=== PATIENT | male | born 1985 | race Caucasian/White ===

== ENCOUNTER 2017-11-20 11:25 | Emergency (ER) | payer OTHER ==
--- NOTE | 2017-11-20 12:56 | RAD REPORT ---
EXAM DESCRIPTION: US - Scrotum Testicles - 11/20/2017 12:45 pm CLINICAL HISTORY: Testicular pain COMPARISON: None. FINDINGS: Testicular tissue is homogeneous. No intratesticular mass lesions. Doppler evaluation show s a normal blood flow pattern within each testicle. No epididymis enlargement or hyperemia seen. Smal l right-sided hydrocele is present. No varicocele or other extratesticular abnormality. IMPRESSION: Small right-sided hydrocele is present. Exam is otherwise unremarkable.
[2017-11-20 13:49] LABS: Urine Blood NEGATIVE (NEG); Urine Glucose NEGATIVE (NEG); Urine Protein NEGATIVE (NEG); Urine Specific Gravity <1.005 (1.005-1.030); Urine pH 5.5 (5.0-7.0)
--- NOTE | 2017-11-20 14:27 | ER ---
Nurse's Notes [facility] Name: Vinod Horton Age: 32 yrs Sex: Male : 1985 Arrival Date: 11/20/2017 Time: 11:28 Bed 20 Private MD: None, None Diagnosis: Hydrocele, unspecified Presentation: 11/20 11:50 Presenting complaint: Presenting complaint: Patient states: "My right testicle is hb pulled up and feels like it is twisted.". 11:52 Transition of care: patient was not received from another setting of care. Onset of hb symptoms was November 19, 2017. Risk Assessment: Do you want to hurt yourself or someone else? Patient reports no desire to harm self or others. Initial Sepsis Screen: Does the patient meet any 2 criteria? No. Patient's initial sepsis screen is negative. Does the patient have a suspected source of infection? No. Patient's initial sepsis screen is negative. Care prior to arrival: None. 11:52 Method Of Arrival: Ambulatory 11:52 Acuity: SARAH 2 hb Historical: - Allergies: 11:53 No Known Allergies; hb - Home Meds: 11:53 None [Active]; hb - PMHx: 11:53 None; hb - PSHx: 11:53 None; hb - Immunization history:: Adult Immunizations up to date. - Social history:: Smoking status: Patient uses tobacco products, smokes one-half pack cigarettes per day. - Ebola Screening: : No symptoms or risks identified at this time. Screenin:30 Abuse screen: Denies threats or abuse. Denies injuries from another. Nutritional aj1 screening: No deficits noted. Tuberculosis screening: No symptoms or risk factors identified. 15:39 Fall Risk None identified. aj1 Assessment: 12:30 General: Appears in no apparent distress. uncomfortable, Behavior is calm, cooperative, aj1 appropriate for age. Pain: Complains of pain in right testicle Pain does not radiate. Pain currently is 10 out of 10 on a pain scale. Neuro: Level of Consciousness is awake, alert, obeys commands, Oriented to person, place, time, situation, Speech is normal, Facial symmetry appears normal. Cardiovascular: Patient's skin is warm and dry. Respiratory: Airway is patent Respiratory effort is even, unlabored, Respiratory pattern is regular, symmetrical. GI: No signs and/or symptoms were reported involving the gastrointestinal system. : Reports Scrotal pain: sudden onset. EENT: No signs and/or symptoms were reported regarding the EENT system. Derm: No signs and/or symptoms reported regarding the dermatologic system. Skin is pink, warm \\T\\ dry. normal. Musculoskeletal: No signs and/or symptoms reported regarding the musculoskeletal system. Circulation, motion, and sensation intact. 13:30 Reassessment: Patient appears in no apparent distress at this time. No changes from aj1 previously documented assessment. Patient and/or family updated on plan of care and expected duration. Pain level reassessed. Patient is alert, oriented x 3, equal unlabored respirations, skin warm/dry/pink. 14:30 Reassessment: Patient appears in no apparent distress at this time. No changes from aj1 previously documented assessment. Patient and/or family updated on plan of care and expected duration. Pain level reassessed. Patient is alert, oriented x 3, equal unlabored respirations, skin warm/dry/pink. 15:37 Reassessment: Patient appears in no apparent distress at this time. No changes from aj1 previously documented assessment. Patient and/or family updated on plan of care and expected duration. Pain level reassessed. Patient is alert, oriented x 3, equal unlabored respirations, skin warm/dry/pink. Vital Signs: 11:51 BP 135 / 92; Pulse 84; Resp 16; Temp 99.2; Pulse Ox 97% on R/A; Weight 90.72 kg; Height hb 5 ft. 6 in. (167.64 cm); Pain 7/10; 12:30 BP 127 / 89; Pulse 89; Resp 18; Pulse Ox 99% ; aj1 13:26 BP 124 / 70; Pulse 82; Resp 18; Pulse Ox 99% ; aj1 14:30 BP 122 / 63; Pulse 79; Resp 18; Pulse Ox 97% ; aj1 15:38 BP 124 / 70; Pulse 72; Resp 16; Pulse Ox 99% ; aj1 11:51 Body Mass Index 32.28 (90.72 kg, 167.64 cm) hb ED Course: 11:28 Patient arrived in ED. sb2 11:29 None, None is Private Physician. sb2 11:52 Triage completed. hb 11:53 Arm band placed on left wrist. hb 12:12 Ganga Carter MD is Attending Physician. adolph 12:25 Shawanda Nixon, RN is Primary Nurse. aj1 12:30 Patient has correct armband on for positive identification. Bed in low position. Call aj1 light in reach. Side rails up X 1. 12:30 No provider procedures requiring assistance completed. aj1 12:30 Inserted saline lock: 20 gauge in left antecubital area, using aseptic technique. aj1 12:45 Scrotum Testicles In Process Unspecified. EDMS 14:25 Obinna Ordonez MD is Referral Physician. adolph 15:39 IV discontinued, intact, bleeding controlled, No redness/swelling at site. Pressure aj1 dressing applied. Administered Medications: 14:52 Drug: Zithromax 1 grams Route: PO; aj1 14:53 CANCELLED (Physician Discretion): Rocephin (cefTRIAXone) 1 grams IM once aj1 14:54 Drug: Rocephin 1 grams Route: IV; Rate: calculated rate; Site: right antecubital; aj1 Outcome: 14:26 Discharge ordered by . [facility] 15:55 Discharged to home ambulatory. dm5 15:55 Condition: good 15:55 Discharge instructions given to patient, Instructed on discharge instructions, follow up and referral plans. medication usage, Demonstrated understanding of instructions, follow-up care, medications, Prescriptions given X 3. 15:55 Patient left the ED. dm5 Signatures: Dispatcher [employer] EDShawanda Henley, RN MELLISSA aj1 Erika Edwards RN RN dm5 Ganga Carter MD MD cha Baxter, Heather, RN RN Maria Teresa Johnson sb2 Corrections: (The following items were deleted from the chart) 11:52 11:50 Presenting complaint: hb hb 12:32 12:31 In radiology for Scrotum Testicles+US.RAD.BRZ. EDPR EDMS
--- NOTE | 2017-11-20 14:28 | EDPHYS ---
Physician Documentation [facility] Name: Vinod Horton Age: 32 yrs Sex: Male : 1985 Arrival Date: 11/20/2017 Time: 11:28 Bed 20 Private MD: None, None ED Physician Ganga Carter HPI: 11/20 12:38 This 32 yrs old Male presents to ER via Ambulatory with complaints of adolph Testicular Pain. 12:38 The patient presents with scrotal pain, of the right side. Onset: The symptoms/episode adolph began/occurred last night. Modifying factors: The symptoms are alleviated by nothing, the symptoms are aggravated by nothing. Associated signs and symptoms: The patient has no apparent associated signs or symptoms. Severity of symptoms: At their worst the symptoms were mild, moderate, in the emergency department the symptoms are unchanged. The patient has not experienced similar symptoms in the past. Historical: - Allergies: 11:53 No Known Allergies; hb - Home Meds: :53 None [Active]; hb - PMHx: :53 None; hb - PSHx: :53 None; hb - Immunization history:: Adult Immunizations up to date. - Social history:: Smoking status: Patient uses tobacco products, smokes one-half pack cigarettes per day. - Ebola Screening: : No symptoms or risks identified at this time. ROS: 12:38 Constitutional: Negative for fever, chills, and weight loss, Eyes: Negative for injury, adolph pain, redness, and discharge, ENT: Negative for injury, pain, and discharge, Neck: Negative for injury, pain, and swelling, Cardiovascular: Negative for chest pain, palpitations, and edema, Respiratory: Negative for shortness of breath, cough, wheezing, and pleuritic chest pain, Abdomen/GI: Negative for abdominal pain, nausea, vomiting, diarrhea, and constipation, Back: Negative for injury and pain, MS/Extremity: Negative for injury and deformity, Skin: Negative for injury, rash, and discoloration, Neuro: Negative for headache, weakness, numbness, tingling, and seizure, Psych: Negative for depression, anxiety, suicide ideation, homicidal ideation, and hallucinations, Allergy/Immunology: Negative for hives, rash, and allergies, Endocrine: Negative for neck swelling, polydipsia, polyuria, polyphagia, and marked weight changes, Hematologic/Lymphatic: Negative for swollen nodes, abnormal bleeding, and unusual bruising. 12:38 : Positive for testicular pain of the left testicle. Exam: 12:38 Constitutional: This is a well developed, well nourished patient who is awake, alert, adolph and in no acute distress. Head/Face: Normocephalic, atraumatic. Eyes: Pupils equal round and reactive to light, extra-ocular motions intact. Lids and lashes normal. Conjunctiva and sclera are non-icteric and not injected. Cornea within normal limits. Periorbital areas with no swelling, redness, or edema. ENT: Nares patent. No nasal discharge, no septal abnormalities noted. Tympanic membranes are normal and external auditory canals are clear. Oropharynx with no redness, swelling, or masses, exudates, or evidence of obstruction, uvula midline. Mucous membranes moist. Neck: Trachea midline, no thyromegaly or masses palpated, and no cervical lymphadenopathy. Supple, full range of motion without nuchal rigidity, or vertebral point tenderness. No Meningismus. Chest/axilla: Normal chest wall appearance and motion. Nontender with no deformity. No lesions are appreciated. Cardiovascular: Regular rate and rhythm with a normal S1 and S2. No gallops, murmurs, or rubs. Normal PMI, no JVD. No pulse deficits. Respiratory: Lungs have equal breath sounds bilaterally, clear to auscultation and percussion. No rales, rhonchi or wheezes noted. No increased work of breathing, no retractions or nasal flaring. Abdomen/GI: Soft, non-tender, with normal bowel sounds. No distension or tympany. No guarding or rebound. No evidence of tenderness throughout. Back: No spinal tenderness. No costovertebral tenderness. Full range of motion. Skin: Warm, dry with normal turgor. Normal color with no rashes, no lesions, and no evidence of cellulitis. MS/ Extremity: Pulses equal, no cyanosis. Neurovascular intact. Full, normal range of motion. Neuro: Awake and alert, GCS 15, oriented to person, place, time, and situation. Cranial nerves II-XII grossly intact. Motor strength 5/5 in all extremities. Sensory grossly intact. Cerebellar exam normal. Normal gait. Psych: Awake, alert, with orientation to person, place and time. Behavior, mood, and affect are within normal limits. 12:38 Musculoskeletal/extremity: Extremities: all appear grossly normal, with no appreciated pain with palpation, grossly normal except: DVT Exam: No signs of deep vein thrombosis. no pain, no swelling, no tenderness, negative Homans' sign noted on exam, no appreciated bluish discoloration, no erythema, no increased warmth. Vital Signs: 11:51 BP 135 / 92; Pulse 84; Resp 16; Temp 99.2; Pulse Ox 97% on R/A; Weight 90.72 kg; Height hb 5 ft. 6 in. (167.64 cm); Pain 7/10; 12:30 BP 127 / 89; Pulse 89; Resp 18; Pulse Ox 99% ; aj1 13:26 BP 124 / 70; Pulse 82; Resp 18; Pulse Ox 99% ; aj1 14:30 BP 122 / 63; Pulse 79; Resp 18; Pulse Ox 97% ; aj1 15:38 BP 124 / 70; Pulse 72; Resp 16; Pulse Ox 99% ; aj1 11:51 Body Mass Index 32.28 (90.72 kg, 167.64 cm) hb MDM: 12:12 Patient medically screened. [facility] 12:41 Data reviewed: vital signs, nurses notes, lab test result(s), radiologic studies, [facility] ultrasound. 11/20 12:38 Order name: Urine Culture [facility] 11/20 13:46 Order name: Urine Dipstick--Ancillary (enter results); Complete Time: 14:23 11/20 12:32 Order name: Scrotum Testicles; Complete Time: 13:23 EDDE 11/20 12:38 Order name: Urine Dipstick-Ancillary (obtain specimen); Complete Time: 15:08 [facility] Administered Medications: 14:52 Drug: Zithromax 1 grams Route: PO; aj1 14:53 CANCELLED (Physician Discretion): Rocephin (cefTRIAXone) 1 grams IM once aj 14:54 Drug: Rocephin 1 grams Route: IV; Rate: calculated rate; Site: right antecubital; aj1 Disposition: 11/20/17 14:26 Discharged to Home. Impression: Hydrocele, unspecified. - Condition is Stable. - Discharge Instructions: Scrotal Masses. - Prescriptions for Ibuprofen 600 mg Oral Tablet - take 1 tablet by ORAL route every 6 hours As needed take with food; 20 tablet. Tylenol- Codeine #3 300-30 mg Oral Tablet - take 2 tablet by ORAL route every 6 hours As needed; 30 tablet. Doxycycline Hyclate 100 mg Oral Tablet - take 1 tablet by ORAL route every 12 hours; 20 tablet. - Medication Reconciliation Form, Thank You Letter, Antibiotic Education, Prescription Opioid Use form. - Follow up: Private Physician; When: 2 - 3 days; Reason: Recheck today's complaints, Continuance of care, Re-evaluation by your physician. Follow up: Obinna Ordonez MD; When: 2 - 3 days; Reason: Recheck today's complaints, Continuance of care, Re-evaluation by your physician. - Problem is new. - Symptoms have improved. Signatures: Dispatcher [employer] [facility] Shawanda Nixon RN RN aj1 Erika Edwards RN RN dm5 Ganga Carter MD MD cha Baxter, Heather, RN RN Corrections: (The following items were deleted from the chart) 12:32 12:27 Scrotum Testicles+US.RAD.BRZ ordered. [facility] 14:53 14:23 Rocephin (cefTRIAXone) 1 grams IM once ordered. adolph [email or web address] 15:55 14:26 11/20/2017 14:26 Discharged to Home. Impression: Hydrocele, unspecified. dm5 Condition is Stable. Forms are Medication Reconciliation Form, Thank You Letter, Antibiotic Education, Prescription Opioid Use. Follow up: Private Physician; When: 2 - 3 days; Reason: Recheck today's complaints, Continuance of care, Re-evaluation by your physician. Follow up: Obinna Ordonez; When: 2 - 3 days; Reason: Recheck today's complaints, Continuance of care, Re-evaluation by your physician. Problem is new. Symptoms have improved. adolph
[2017-11-20] MEDS ORDERED: AZITHROMYCIN 250 MG TAB ONE (14:41)
[2017-11-20] MEDS ORDERED: CEFTRIAXONE/SWI 1gm 1 GM/10 ML SYR ONE (14:42)
== END 2017-11-20 15:55 | disposition home or self-care (01) ==
LOC: ER 11:25
DX: N43.3 Hydrocele, unspecified (principal); F17.210 Nicotine dependence, cigarettes, uncomplicated
CPT/HCPCS: 76870; 81003; 87086; 87088; 96374; 99284; J0696

== ENCOUNTER 2022-12-01 10:47 | Day surgery (SDC) | payer BC ==
[2022-12-01] MEDS ORDERED: Ringers Lactate 1,000 ML IV ONE ×3 (11:05→15:54)
[2022-12-01] MEDS ORDERED: CEFAZOLIN SODIUM 2 GM/VIAL ONE (11:05)
[2022-12-01] MEDS ORDERED: BUPIVACAINE 0.25% PF 30 ML VIAL ONE (11:13)
[2022-12-01] MEDS ORDERED: SUCCINYLCHOLINE 20 MG/ML (10 ML) IV ONE (11:58)
[2022-12-01] MEDS ORDERED: propofoL 200 MG/20 ML VIAL IV ONE (12:00)
[2022-12-01] MEDS ORDERED: FENTANYL CITR 100 MCG/2 ML ONE ×2 (12:00→12:28)
[2022-12-01] MEDS ORDERED: ROCURONIUM 50 MG/5 ML VIAL IV ONE ×2 (12:00→13:19)
[2022-12-01] MEDS ORDERED: MIDAZOLAM HCL 2 MG/2 ML INJ ONE ×2 (12:00→13:46)
[2022-12-01] MEDS ORDERED: KETOROLAC 30 MG/ML INJ ONE (12:24)
[2022-12-01] MEDS ORDERED: dexAMETHasone 4 MG/ML VIAL ONE (12:27)
[2022-12-01] MEDS ORDERED: ONDANSETRON 4 MG/2 ML VIAL ONE (12:27)
[2022-12-01] MEDS ORDERED: GLYCOPYRROLATE 0.2 MG/ML SYR ONE (12:27)
[2022-12-01] MEDS ORDERED: NEOSTIGMINE 1 MG/ML -10 ML VIAL ONE (12:27)
--- NOTE | 2022-12-01 13:19 | P.OP ---
Preoperative diagnosis: RIGHT inguinal Hernia Postoperative diagnosis: RIGHT inguinal Hernia Primary procedure: Open RIGHT Inginal Hernia Repair with mesh Anesthesia: GETA + Local Estimated blood loss: <10cc Specimen: cord lipoma Findings: Small LEFT indirect inguinal hernia repair with mesh Complications: None Implants: Small Bard Perfix plug and patch Transferred to: Recovery Room Condition: Good
[2022-12-01] MEDS: HYDROMORPHONE HCL 1 MG/ML INJ ONE ×2 (14:00→14:11)
[2022-12-01 15:05] VITALS: BP 122/71; TEMP 97.3; O2SAT 98
--- NOTE | 2022-12-01 23:17 | OP ---
Date of Procedure: 12/01/2022 Surgeon: Jeancarlos Singh MD, Preoperative Diagnosis: Right inguinal hernia. Postoperative Diagnosis: Right inguinal hernia. Procedure Performed: An open right inguinal hernia repair with mesh. Anesthesia: General endotracheal plus local with 0.25% Marcaine. Estimated Blood Loss: Less 10 cc. Specimen: Cord lipoma. Findings: Small left indirect inguinal hernia repaired with mesh system. Complications: None. Implants: Bard PerFix small plug and patch hernia repair system. The patient was transferred to recovery room in good condition. Procedure In Detail: After informed consent was obtained, the patient was prepped and draped in the usual sterile fashion after adequate anesthesia was achieved. I anesthetized the area of the right i nguinal region down to subcutaneous tissues using 0.25% Marcaine. I then made a sharp incision down through the subcutaneous tissues. I used electrocautery to dissect down the Camper fat and Elgin fa scia to expose the external oblique aponeurosis. This was opened sharply in the direction of the fib ers with a 15 blade. At this point, I opened it in its entirety using Metzenbaum scissors, protectin g the ilioinguinal iliohypogastric nerve throughout. After this was opened in its entirety, I encirc led the spermatic cord structures and found a cord lipoma to be in the medial aspect emanating from t he indirect inguinal hernia. I took the cord lipoma off and ligated it using a 3-0 Vicryl suture. I then palpated the hernia defect. This was easily reducible to the preperitoneal space. At this poi nt, I sized a small Bard PerFix plug and placed in the preperitoneal space and secured it using a sin gle 2-0 PDS suture and it sat in a good anatomic orientation eliminating the hernia at this time. I then sized the patch appropriately, secured to the pubic tubercle in medial aspect and circumferentia lly on the undersurface of the internal oblique aponeurosis and the undersurface of the inguinal liga ment using interrupted 2-0 PDS sutures and reconstructed the deep inguinal ring with same said 2-0 PD S suture. After trimming the mesh appropriately, I then noted the testicle had been visualized. I p laced a needle into a hydrocele within the dartos. This was removed approximately 20 cc of fluid and I placed interrupted 4-0 chromic suture to close the needle defect through the dartos and returned t he testicle to its normal anatomic position. There was no leakage of fluid at the end of the procedu re. At this point, I irrigated the area copiously and closed the external oblique aponeurosis using a 3-0 Vicryl suture in a running fashion. I then closed the Camper fat and Elgin fascia using inter rupted 3-0 Vicryl suture with good approximation of tissues. The deep dermal plane was also closed w ith the same said 3-0 Vicryl suture and the skin was closed with a 4-0 Monocryl in a running fashion. Dermabond was placed over top. The patient tolerated the procedure well without evidence of compli cation and transferred to PACU in good condition. All counts were correct at the end of the case. JAQUI/LEXI Voice ID: [id number] Report ID: [id number]
== END 2022-12-01 16:29 | disposition home or self-care (01) ==
LOC: OR 10:47
PROVIDERS: ATTEND Surgery
PROC: 0YU50JZ Supplement Right Inguinal Region with Synthetic Substitute, Open Approach (ICD-10-PCS; principal; 2022-12-01 12:45)
DX: K40.90 Unilateral inguinal hernia, without obstruction or gangrene, not specified as recurrent (principal)
CPT/HCPCS: 88302; 49505; J2704; J1100; J2710; J2250 ×2; J3010 ×2; J1170; J2405; J7120 ×3